=== PATIENT | female | born 1995 | race American Indian/Alaskan Native ===

== ENCOUNTER 2017-12-27 09:02 | Emergency (ER) | payer MEDICAID ==
[2017-12-27 09:09] VITALS: BP 117/80
--- NOTE | 2017-12-27 10:07 | Emergency Department Report ---
ED Female HPI - General Chief complaint: Urogenital-Female Stated complaint: UTI Time Seen by Provider: 12/27/17 09:36 Source: patient Mode of arrival: Ambulatory Limitations: No Limitations - History of Present Illness Initial comments: This is a 22-year-old female that presents with low back pain and dysuria for 2 days. Patient reports history of frequent UTIs. States she is having an frequency and urgency with pressure during urination. Admits to having a fever 2 days prior to symptoms starting but denies recent exposure to STD. Last menstrual period was 12/01/2017, A2. Denies vaginal discharge, nausea or vomiting, chest pain, and shortness of breath. -: days(s) (2 days) Radiation: non-radiating, L flank, R flank Severity: mild Severity scale (0 -10): 2 Quality: aching Consistency: intermittent Improves with: none Worsens with: urination Are you Now?: No Last Menstrual Period: 12/01/17 EDC: 09/07/18 Associated Symptoms: fever/chills, dysuria. denies: vaginal discharge, vaginal bleeding, abdominal pain, nausea/vomiting, headaches, loss of appetite, hematuria, rash, seizure, shortness of breath, syncope, weakness - Related Data Sexually active: Yes : 2 Para: 0 A: 2 Previous Rx's Medication Instructions Recorded Last Taken Type Vit-Fe Fumar-FA [ 1 each PO QDAY #30 tablet 06/06/14 Unknown Rx Vitamin] Phenazopyridine [Pyridium] 200 mg PO TID #6 tab 12/27/17 Unknown Rx Sulfamethoxazole/Trimethoprim 1 each PO BID 3 Days #6 tablet 12/27/17 Unknown Rx [Bactrim DS TAB] Allergies Allergy/AdvReac Type Severity Reaction Status Date / Time No Known Allergies Allergy Verified 12/27/17 09:06 ED Review of Systems ROS: Stated complaint: UTI Other details as noted in HPI Constitutional: denies: chills, fever Respiratory: denies: cough, shortness of breath, wheezing Cardiovascular: denies: chest pain, palpitations Gastrointestinal: denies: abdominal pain, nausea, vomiting, diarrhea Genitourinary: urgency, dysuria, frequency. denies: hematuria, discharge Musculoskeletal: denies: back pain, joint swelling, arthralgia Neurological: denies: headache, weakness, paresthesias ED Past Medical Hx - Past Medical History Previous Medical History?: No - Surgical History Past Surgical History?: No - Social History Smoking Status: Never Smoker Substance Use Type: None - Medications Home Medications: Home Medications Medication Instructions Recorded Confirmed Last Taken Type Vit-Fe Fumar-FA [ 1 each PO QDAY #30 tablet 06/06/14 Unknown Rx Vitamin] Phenazopyridine [Pyridium] 200 mg PO TID #6 tab 12/27/17 Unknown Rx Sulfamethoxazole/Trimethoprim 1 each PO BID 3 Days #6 tablet 12/27/17 Unknown Rx [Bactrim DS TAB] ED Physical Exam - General Limitations: No Limitations General appearance: alert, in no apparent distress - Respiratory Respiratory exam: Present: normal lung sounds bilaterally. Absent: respiratory distress - Cardiovascular Cardiovascular Exam: Present: regular rate, normal rhythm. Absent: systolic murmur, diastolic murmur, rubs, gallop - GI/Abdominal GI/Abdominal exam: Present: soft, normal bowel sounds. Absent: organomegaly, mass - Back Exam Back exam: Present: full ROM, CVA tenderness (L). Absent: tenderness, CVA tenderness (R), muscle spasm, paraspinal tenderness, vertebral tenderness, rash noted - Neurological Exam Neurological exam: Present: alert, oriented X3 - Psychiatric Psychiatric exam: Present: normal affect, normal mood - Skin Skin exam: Present: warm, dry, intact, normal color. Absent: rash ED Course Vital Signs 12/27/17 09:06 Temperature 98.5 F Pulse Rate 72 Respiratory 16 Rate Blood Pressure 117/80 O2 Sat by Pulse 100 Oximetry ED Medical Decision Making - Medical Decision Making This is a 22-year-old -[place] female who presents with low back pain and dysuria for 2 days. Patient was examined by me. Vitals are stable and in no acute distress. Urinalysis and urine test obtained. Urine hCG negative, will treat acute cystitis with Bactrim and Pyridium. Start Bactrim DS 1 tab by mouth twice a day 3 days, Pyridium 200 mg by mouth 3 times a day for 2 days. Discharged home in stable condition. Encouraged to increase fluid intake and follow-up with PCP if symptoms are not improved in 3 days. Critical care attestation.: If time is entered above; I have spent that time in minutes in the direct care of this critically ill patient, excluding procedure time. ED Disposition Clinical Impression: Acute cystitis Qualifiers: Hematuria presence: without hematuria Qualified Code(s): N30.00 - Acute cystitis without hematuria Disposition: TO HOME OR SELFCARE Is pt being admited?: No Does the pt Need Aspirin: No Condition: Stable Instructions: Urinary Tract Infection in Women (ED), Dysuria (ED) Additional Instructions: Increase fluid intake to 1-2 L daily. Take the full course of antibiotics as prescribed. Don't drink alcohol while taking an antibiotics and for that to 24 hours after completion. Follow-up with primary care provider in 3-5 days if symptoms have not improved. Prescriptions: Phenazopyridine [Pyridium] 200 mg PO TID #6 tab Sulfamethoxazole/Trimethoprim [Bactrim DS TAB] 1 each PO BID 3 Days #6 tablet Referrals: [facility] [Outside] - 3-5 Days [facility] [Outside] - 3-5 Days [facility] [Outside] - 3-5 Days Forms: Work/School Release Form(ED) Time of Disposition: 10:30 Print Language: BOTSWANAN
[2017-12-27 10:08] LABS: Bacteria,Urine 1+ /HPF (Negative); Bilirubin,Urine NEG (Negative); Blood,Urine NEG (Negative); Color,Urine Yellow (Yellow); Mucus,Urine 2+ /HPF
[2017-12-27 10:11] LABS: HCG Qualitative,Urine Negative (Negative)
== END 2017-12-27 11:08 | disposition home or self-care (01) ==
LOC: ED 09:02
DX: N30.00 Acute cystitis without hematuria (principal)
CPT/HCPCS: 81001; 81025; 99283

== ENCOUNTER 2018-12-06 23:04 | Emergency (ER) | payer MEDICAID ==
[2018-12-06 23:47] LABS: Basophils % (Auto) 0.5 % (0.0-1.8); Eosinophils # (Auto) 0.1 K/mm3 (0.0-0.4); Eosinophils % (Auto) 1.4 % (0.0-4.3); Hematocrit 36.4 % (30.3-42.9); Lymphocytes # (Auto) 2.9 K/mm3 (1.2-5.4); Lymphocytes % (Auto) 42.8 % (13.4-35.0); Mean Corpuscular HGB Conc 36 % (30-34); Mean Corpuscular Volume 90 fl (79-97); Monocytes # (Auto) 0.7 K/mm3 (0.0-0.8); Platelet Count 264 K/mm3 (140-440); Red Blood Count 4.06 M/mm3 (3.65-5.03); Red Cell Distribution Width 13.4 % (13.2-15.2)
[2018-12-06] MEDS ORDERED: ZOFRAN ODT PO PRN (23:52)
[2018-12-06] MEDS ORDERED: TYLENOL PO PRN (23:52)
--- NOTE | 2018-12-06 23:53 | Emergency Department Report ---
<LAURA SYLVESTER III - Last Filed: 12/07/18 05:52> ED General Adult HPI - General Chief complaint: Abdominal Pain Stated complaint: ABDOMINAL PAIN Time Seen by Provider: 12/06/18 23:46 - Related Data Previous Rx's Medication Instructions Recorded Last Taken Type Vit-Fe Fumar-FA [ 1 each PO QDAY #30 tablet 06/06/14 Unknown Rx Vitamin] Amoxicillin [Amoxicillin TAB] 875 mg PO BID 10 Days #20 tablet 12/07/18 Unknown Rx Doxylamine Succinate/Vit B6 1 each PO QHS PRN #30 tablet. 12/07/18 Unknown Rx [Deep Whyte 10-10 mg Tablet] Vit-Fe Fumar-FA [ 1 tab PO QDAY #30 tablet 12/07/18 Unknown Rx Vitamin] Allergies Allergy/AdvReac Type Severity Reaction Status Date / Time No Known Allergies Allergy Verified 12/27/17 09:06 ED Past Medical Hx - Medications Home Medications: Home Medications Medication Instructions Recorded Confirmed Last Taken Type Vit-Fe Fumar-FA [ 1 each PO QDAY #30 tablet 06/06/14 Unknown Rx Vitamin] Amoxicillin [Amoxicillin TAB] 875 mg PO BID 10 Days #20 tablet 12/07/18 Unknown Rx Doxylamine Succinate/Vit B6 1 each PO QHS PRN #30 tablet. 12/07/18 Unknown Rx [Deep Whyte 10-10 mg Tablet] Vit-Fe Fumar-FA [ 1 tab PO QDAY #30 tablet 12/07/18 Unknown Rx Vitamin] ED Course - Reevaluation(s) Reevaluation #3: Patient's UA positive for a UTI. Patient will be given antibiotics. Patient's ultrasound is done and is positive for a single IUP at 6 weeks and 3 days. Deric diego given discharge instructions. Patient voiced understanding of discharge instructions. 12/07/18 05:53 ED Medical Decision Making - Lab Data Result diagrams: 12/06/18 23:28 12/06/18 23:28 ED Disposition Clinical Impression: Qualifiers: Weeks of gestation: less than 8 weeks Qualified Code(s): Z3A.01 - Less than 8 weeks gestation of UTI (urinary tract infection) Qualifiers: Urinary tract infection type: acute cystitis Hematuria presence: with hematuria Qualified Code(s): N30.01 - Acute cystitis with hematuria Abdominal pain Qualifiers: Abdominal location: unspecified location Qualified Code(s): R10.9 - Unspecified abdominal pain Disposition: DC-01 TO HOME OR SELFCARE Is pt being admited?: No Does the pt Need Aspirin: No Condition: Stable Instructions: (ED) Additional Instructions: Take the vitamins as directed. Take nausea medication as needed/direc young. Avoid consumption of Motrin, ibuprofen, Naprosyn, Aleve. Avoid consumption of alcohol. Follow up as soon as possible with an outpatient [facility] physician to initiate care. Return to the emergency room right away with new, worsening or different symptoms, or symptoms not present on the initial emergency room evaluation. Prescriptions: Doxylamine Succinate/Vit B6 [Diclegis Dr 10-10 mg Tablet] 1 each PO QHS PRN #30 tablet.dr PRN Reason: Nausea Amoxicillin [Amoxicillin TAB] 875 mg PO BID 10 Days #20 tablet Vit-Fe Fumar-FA [ Vitamin] 1 tab PO QDAY #30 tablet Referrals: [facility] [Provider Group] - 3-5 Days [facility] [Provider Group] - 3-5 Days [facility] [Provider Group] - 3-5 Days Time of Disposition: 05:55 <GT EUCEDA - Last Filed: 12/15/18 19:25> ED General Adult HPI - General Source: patient, RN notes reviewed, old records reviewed Mode of arrival: Ambulatory Limitations: No Limitations - History of Present Illness Initial comments: This is a pleasant 23-year-old female. The patient is not known to this provider previously. The patient is 2, para 0. Last menstrual period October 10. Does not have a primary care doctor. Does not have a private [facility] RECEPTIONIST physician. Presents to the ER with a complaint of resolved supraumbilical abdominal cr amping. This is intermittent over the past couple days. It does not radiate anywhere. No headache, neck pain, chest pain, shortness of breath, fever, ocular discharge. Positive nausea, no vomiting. No urinary symptoms. No skin lesions. No rashes. No arthritis. Reportedly took a home test which was positive. No history of abdominal surgeries. -: Gradual Location: abdomen Radiation: non-radiation Quality: aching Consistency: intermittent Improves with: none Worsens with: none ED Review of Systems ROS: Stated complaint: ABDOMINAL PAIN Other details as noted in HPI Constitutional: denies: fever Eyes: denies: eye discharge ENT: denies: epistaxis Respiratory: denies: cough Cardiovascular: denies: palpitations Gastrointestinal: abdominal pain, nausea. denies: vomiting Genitourinary: denies: dysuria Musculoskeletal: denies: arthralgia Skin: denies: lesions Neurological: denies: weakness Psychiatric: denies: anxiety ED Past Medical Hx - Past Medical History Previous Medical History?: No - Surgical History Past Surgical History?: No - Social History Smoking Status: Never Smoker Substance Use Type: None ED Physical Exam - General Limitations: No Limitations General appearance: alert, in no apparent distress - Head Head exam: Present: atraumatic, normocephalic - Eye Eye exam: Present: normal appearance, EOMI. Absent: nystagmus - ENT ENT exam: Present: normal exam, normal orophraynx, mucous membranes moist, normal external ear exam - Neck Neck exam: Present: normal inspection, full ROM. Absent: tenderness, meningismus - Respiratory Respiratory exam: Present: normal lung sounds bilaterally. Absent: respiratory distress - Cardiovascular Cardiovascular Exam: Present: regular rate, normal rhythm, normal heart sounds. Absent: bradycardia, tachycardia, irregular rhythm, systolic murmur, diastolic murmur, rubs, gallop - GI/Abdominal GI/Abdominal exam: Present: soft. Absent: distended, tenderness, guarding, rebound, rigid, pulsatile mass - Extremities Exam Extremities exam: Present: normal inspection, full ROM, other (2+ pulses noted in the bilateral upper, lower extremities. Compartments soft. No long bony tenderness. The pelvis is stable.). Absent: pedal edema, joint swelling, calf tenderness - Back Exam Back exam: Present: normal inspection, full ROM. Absent: tenderness, CVA tenderness (R), CVA tenderness (L), paraspinal tenderness, vertebral tenderness - Neurological Exam Neurological exam: Present: alert, normal gait, other (Extraocular movements intact. Tongue midline. No facial droop. Facial sensation intact to light touch in the V1, V2, V3 distribution bilaterally. 5 and 5 strength in 4 extre mities.. Sensation is intact to light touch in 4 extremities.). Absent: motor sensory deficit - Psychiatric Psychiatric exam: Present: normal affect, normal mood - Skin Skin exam: Present: warm, dry, intact, normal color. Absent: rash ED Course Vital Signs 12/07/18 12/07/18 12/07/18 00:10 00:13 01:17 Temperature 98.5 F Pulse Rate 81 Respiratory 16 16 16 Rate Blood Pressure 122/70 [Right] O2 Sat by Pulse 98 Oximetry 12/07/18 12/07/18 02:00 06:22 Temperature 98.1 F 98.2 F Pulse Rate 81 81 Respiratory 16 16 Rate Blood Pressure 112/72 112/63 [Right] O2 Sat by Pulse 100 100 Oximetry - Reevaluation(s) Reevaluation #1: 12/07/18 00:00 Differential diagnosis, including not limited to: Confirmation of positive test, urinary tract infection, subchorionic hemorrhage, , ectopic , constipation Assessment and plan: 23-year-old female who endorses intermittent abdominal pain. She is not having pain in this moment. She has no abdominal tenderness. She appears to be afebrile with reassuring vital signs and appears to be quite comfortable. Her physical examination is quite unremarkable. We will check screening laboratory studies, type and screen, urinalysis, obstetrics ultrasound. Suspect primary motivation for presenting to the emergency room is confirmation of outpatient test. Reevaluation #2: 12/07/18 01:39 Patient found to be Rh+. Laboratory studies confirm . Ultrasound pending. Initial urinalysis contaminated with epithelial cells, and therefore not interpretable. Repeat clean catch urinalysis has been requested. Care will be transferred to the overnight physician, Dr. Annamaria Sylvester, to follow-up on clean catch urinalysis, and ultrasound. Anticipate discharge if uncomplicated intrauterine is confirmed. ED Medical Decision Making - Lab Data Result diagrams: 12/06/18 23:28 12/06/18 23:28 Lab Results 12/06/18 Range/Units 23:28 WBC 6.7 (4.5-11.0) K/mm3 RBC 4.06 (3.65-5.03) M/mm3 Hgb 13.0 (10.1-14.3) gm/dl Hct 36.4 (30.3-42.9) % MCV 90 (79-97) fl MCH 32 (28-32) pg MCHC 36 H (30-34) % RDW 13.4 (13.2-15.2) % Plt Count 264 (140-440) K/mm3 Lymph % (Auto) 42.8 H (13.4-35.0) % Nobles % (Auto) 10.0 H (0.0-7.3) % Eos % (Auto) 1.4 (0.0-4.3) % Baso % (Auto) 0.5 (0.0-1.8) % Lymph # 2.9 (1.2-5.4) K/mm3 Nobles # 0.7 (0.0-0.8) K/mm3 Eos # 0.1 (0.0-0.4) K/mm3 Baso # 0.0 (0.0-0.1) K/mm3 Seg Neutrophils % 45.3 (40.0-70.0) % Seg Neutrophils # 3.0 (1.8-7.7) K/mm3 Vital Signs 12/07/18 00:13 Temperature 98.5 F Pulse Rate 81 Respiratory 16 Rate Blood Pressure 122/70 [Right] O2 Sat by Pulse 98 Oximetry Lab Results 12/06/18 12/06/18 Range/Units 23:28 23:28 WBC 6.7 (4.5-11.0) K/mm3 RBC 4.06 (3.65-5.03) M/mm3 Hgb 13.0 (10.1-14.3) gm/dl Hct 36.4 (30.3-42.9) % MCV 90 (79-97) fl MCH 32 (28-32) pg MCHC 36 H (30-34) % RDW 13.4 (13.2-15.2) % Plt Count 264 (140-440) K/mm3 Lymph % (Auto) 42.8 H (13.4-35.0) % Nobles % (Auto) 10.0 H (0.0-7.3) % Eos % (Auto) 1.4 (0.0-4.3) % Baso % (Auto) 0.5 (0.0-1.8) % Lymph # 2.9 (1.2-5.4) K/mm3 Nobles # 0.7 (0.0-0.8) K/mm3 Eos # 0.1 (0.0-0.4) K/mm3 Baso # 0.0 (0.0-0.1) K/mm3 Seg Neutrophils % 45.3 (40.0-70.0) % Seg Neutrophils # 3.0 (1.8-7.7) K/mm3 Sodium 137 (137-145) mmol/L Potassium 3.7 (3.6-5.0) mmol/L Chloride 102.3 (98-107) mmol/L Carbon Dioxide 22 (22-30) mmol/L Anion Gap 16 mmol/L BUN 9 (7-17) mg/dL Creatinine 0.7 (0.7-1.2) mg/dL Estimated GFR > 60 ml/min BUN/Creatinine Ratio 13 % Glucose 82 (65-100) mg/dL Calcium 9.0 (8.4-10.2) mg/dL Total Bilirubin 0.30 (0.1-1.2) mg/dL AST 17 (5-40) units/L ALT 10 (7-56) units/L Alkaline Phosphatase 49 (35-129) units/L Total Protein 7.6 (6.3-8.2) g/dL Albumin 4.1 (3.9-5) g/dL Albumin/Globulin Ratio 1.2 % - Radiology Data Radiology results: pending, report reviewed, image reviewed Print Report Referring Physician: GT EUCEDA Patient Name: KATHRINE SHAH Date of : 1995 Sex: Female Report Date: 2018-12-06 Report Status: Finalized Findings [facility] [address] [place] [address] Ultrasound Report Signed Patient: KATHRINE SHAH MR#: [id number] : 1995 Acct:[id number] Age/Sex: 23 / F ADM Date: 12/06/18 Loc: ED Attending Dr: Ordering Physician: GT EUCEDA MD Date of Service: 12/06/18 Procedure(s): US OB transvaginal Accession Number(s): [id number] cc: GT EUCEDA MD PROCEDURE: US OB <= 14 WEEKS FETUS TECHNIQUE: Transabdominal and transvaginal pelvic ultrasound HISTORY: abd pain COMPARISONS: No priors FINDINGS: The uterus is normal in contour and measures 8.5 cm longitudinally. Nabothian cyst incidentally noted adjacent to the cervical canal. There is an intrauterine gestational sac with pole identified. [place]-rump length corresponds to a gestational age of 6 weeks and 3 days. The heart rate is 123 beats per minutes. The right ovary is enlarged. There is a right ovarian cyst which measures approximately 3.6 cm in diameter. There is a smaller complex ovarian cysts with internal echoes which may be hemorrhagic measuring approximately 1.9 cm in diameter. The left ovary is normal in contour. Isoechoic rounded structure in the left ovary measuring 1.3 cm likely representing corpus luteum. Ovarian vascularity demonstrated with color flow images. IMPRESSION: S henry viable intrauterine at approximately 6 weeks and 3 days of gestation. 3.6 cm right ovarian cyst and complex cystic lesion in the right ovary measuring 1.9 cm in diameter which may be hemorrhagic. 1.3 cm isoechoic structure in the left ovary likely corpus luteum measuring 1.3 cm . This document is electronically signed by Mickey Morillo MD., December 07 2018 03:18:23 AM ET Transcribed By: EVERTON Dictated By: MCIKEY MORILLO MD Electronically Authenticated By: MICKEY MORILLO MD Signed Date/Time: 12/07/18 0320 Critical care attestation.: If time is entered above; I have spent that time in minutes in the direct care of this critically ill patient, excluding procedure time. ED Disposition Is pt being admited?: No Does the pt Need Aspirin: No
[2018-12-07 00:14] LABS: Alanine Aminotransferase 10 units/L (7-56); Albumin 4.1 g/dL (3.9-5); BUN/Creatinine Ratio 13; Blood Urea Nitrogen 9 mg/dL (7-17); Hemolysis Index 10
[2018-12-07 01:30] LABS: Bacteria,Urine 1+ /HPF (Negative); Bilirubin,Urine NEG (Negative); Blood,Urine NEG (Negative); Color,Urine Yellow (Yellow); Hyaline Casts,Urine 3 /LPF; Mucus,Urine FEW /HPF; Protein,Urine <15 mg/dL mg/dL (Negative); Urobilinogen,Urine < 2.0 mg/dL (<2.0)
--- NOTE | 2018-12-07 03:20 | Ultrasound Report ---
PROCEDURE: US OB <= 14 WEEKS FETUS TECHNIQUE: Transabdominal and transvaginal pelvic ultrasound HISTORY: abd pain COMPARISONS: No priors FINDINGS: The uterus is normal in contour and measures 8.5 cm longitudinally. Nabothian cyst incidentally noted adjacent to the cervical canal. There is an intrauterine gestational sac with pole identified. [place]-rump length corresponds to a gestational age of 6 weeks and 3 days. The heart rate is 123 beats per minutes. The right ovary is enlarged. There is a right ovarian cyst which measures approximately 3.6 cm in josh meter. There is a smaller complex ovarian cysts with internal echoes which may be hemorrhagic measuri ng approximately 1.9 cm in diameter. The left ovary is normal in contour. Isoechoic rounded structure in the left ovary measuring 1.3 cm l ikely representing corpus luteum. Ovarian vascularity demonstrated with color flow images. IMPRESSION: Single viable intrauterine at approximately 6 weeks and 3 days of gestation. 3.6 cm right ovarian cyst and complex cystic lesion in the right ovary measuring 1.9 cm in diameter w hich may be hemorrhagic. 1.3 cm isoechoic structure in the left ovary likely corpus luteum measuring 1.3 cm . This document is electronically signed by Mickey Morillo MD., December 07 2018 03:18:23 AM ET
[2018-12-07 05:00] LABS: Amorphous Crystals,Urine Few; Bilirubin,Urine NEG (Negative); Blood,Urine MOD (Negative); Color,Urine Straw (Yellow); Mucus,Urine FEW /HPF; Protein,Urine <15 mg/dL mg/dL (Negative); Urobilinogen,Urine < 2.0 mg/dL (<2.0)
[2018-12-07 06:24] VITALS: BP 112/63
== END 2018-12-07 06:25 | disposition home or self-care (01) ==
LOC: ED 23:04
DX: O23.41 Unspecified infection of urinary tract in pregnancy, first trimester (principal); Z3A.01 Less than 8 weeks gestation of pregnancy; Z79.899 Other long term (current) drug therapy
CPT/HCPCS: 36415; 76801; 76817; 80053; 81001; 84702; 85025; 85461; 86850; 86900; 86901; 87086; 99284; Q0162

== ENCOUNTER 2019-02-20 11:40 | Emergency (ER) | payer MEDICAID ==
--- NOTE | 2019-02-20 12:01 | Event Note ---
ED Screening Note ED Screening Note: 17 W PREG WITH NEW VAG SPOTTING NO PAIN NO TISSUE PASSING AMBULATORY [id number] HAS SEEN OBGYN AND ALL WAS FINE WITH PMH NONE PSH NONE RX NO CIG/ETOH/DRUGA This initial assessment/diagnostic orders/clinical plan/treatment(s) is/are subject to change based on patients health status, clinical progression and re- assessment by fellow clinical providers in the ED. Further treatment and workup at subsequent clinical providers discretion. Patient/guardian urged not to elope from the ED as their condition may be serious if not clinically assessed and managed. Initial orders include: UA LABS US
[2019-02-20 12:06] VITALS: BP 122/82
[2019-02-20 12:36] LABS: Basophils % (Auto) 0.3 % (0.0-1.8); Eosinophils % (Auto) 0.7 % (0.0-4.3); Hematocrit 35.2 % (30.3-42.9); Hemoglobin 12.2 gm/dl (10.1-14.3); Lymphocytes # (Auto) 1.8 K/mm3 (1.2-5.4); Lymphocytes % (Auto) 27.7 % (13.4-35.0); Mean Corpuscular HGB Conc 35 % (30-34); Mean Corpuscular Volume 91 fl (79-97); Monocytes # (Auto) 0.6 K/mm3 (0.0-0.8); Monocytes % (Auto) 9.4 % (0.0-7.3); Platelet Count 253 K/mm3 (140-440); Red Blood Count 3.86 M/mm3 (3.65-5.03); Red Cell Distribution Width 13.6 % (13.2-15.2)
[2019-02-20 12:52] LABS: BUN/Creatinine Ratio 10; Blood Urea Nitrogen 5 mg/dL (7-17); Calcium 8.9 mg/dL (8.4-10.2); Hemolysis Index 1
--- NOTE | 2019-02-20 13:42 | Ultrasound Report ---
OB Ultrasound HISTORY: VAG BLEED IN PREG. TECHNIQUE: Grayscale and color Doppler imaging performed. COMPARISON: OB ultrasound from 12/07/2018 FINDINGS: Transabdominal imaging was performed. There is a single intrauterine gestation which is breech in presentation. Placenta is positioned post eriorly. There are fluid pockets deeper than 2 cm. Overall EGA by evaluating biparietal diameter, hea d circumference, abdominal circumference, and femoral length is 17 weeks and 3 days with an estimated delivery date of 07/28/2019. Limited anatomic survey did not show the kidneys and four-chamber heart a re well but the remaining anatomy is unremarkable. The heart rate is 142 bpm and the cervical length is 3 cm. IMPRESSION: 1. Single viable intrauterine gestation as above. 2. Poor visualization of the kidneys and four-chamber heart on this exam. Attention on follow-up wan mmended. Signer Name: Amari Markham MD Signed: 02/20/2019 1:37 PM Workstation Name: [id number]
--- NOTE | 2019-02-20 14:44 | Emergency Department Report ---
HPI - General Chief Complaint: Vaginal Bleeding Time Seen by Provider: 02/20/19 12:01 - [facility] HPI: Room 40 The patient is a 23-year-old female presenting with a chief complaint of vaginal spotting. The patient states she is approximately 17 weeks gestational age and today while at work she developed some vaginal spotting. Patient denied abdominal pain. Patient denies recent trauma or sexual intercourse. Patient denies fever or vaginal discharge. Patient currently denies complaints Location: [See above] Duration: [See above] Quality: [See above] Severity: [See above] Timing: [See above] Context: [See above] Modifying factors: [See above] Associated signs and symptoms: [see above] ED Past Medical Hx - Past Medical History Previous Medical History?: No - Surgical History Past Surgical History?: No - Family History Family history: no significant - Social History Smoking Status: Never Smoker Substance Use Type: None - Medications Home Medications: Home Medications Medication Instructions Recorded Confirmed Last Taken Type Vit-Fe Fumar-FA [ 1 each PO QDAY #30 tablet 06/06/14 Unknown Rx Vitamin] Amoxicillin [Amoxicillin TAB] 875 mg PO BID 10 Days #20 tablet 12/07/18 Unknown Rx Doxylamine Succinate/Vit B6 1 each PO QHS PRN #30 tablet. 12/07/18 Unknown Rx [Deep Whyte 10-10 mg Tablet] Vit-Fe Fumar-FA [ 1 tab PO QDAY #30 tablet 12/07/18 Unknown Rx Vitamin] ED Review of Systems ROS: Stated complaint: 17 WKS /BLEEDING/PAIN Other details as noted in HPI Constitutional: denies: fever Eyes: denies: eye pain ENT: denies: throat pain Respiratory: no symptoms reported Cardiovascular: denies: chest pain Endocrine: no symptoms reported Gastrointestinal: denies: abdominal pain Genitourinary: abnormal menses Musculoskeletal: denies: back pain Neurological: denies: headache Physical Exam - Physical Exam Vital Signs: Vital Signs 02/20/19 12:04 Temperature 97.7 F Pulse Rate 92 H Respiratory 18 Rate Blood Pressure 122/82 O2 Sat by Pulse 100 Oximetry Physical Exam: GENERAL: The patient is well-developed well-nourished female lying on stretcher not appearing to be in acute distress. [] HEENT: Normocephalic. Atraumatic. Extraocular motions are intact. Patient has moist mucous membranes. NECK: Supple. Trachea midline CHEST/LUNGS: Clear to auscultation. There is no respiratory distress noted. HEART/CARDIOVASCULAR: Regular. There is no tachycardia. There is no gallop rub or murmur. ABDOMEN: Abdomen is soft, nontender. Patient has normal bowel sounds. The patient is gravid SKIN: There is no rash. There is no edema. There is no diaphoresis. NEURO: The patient is awake, alert, and oriented. The patient is cooperative. The patient has normal speech MUSCULOSKELETAL: There is no evidence of acute injury. ED Course Vital Signs 02/20/19 12:04 Temperature 97.7 F Pulse Rate 92 H Respiratory 18 Rate Blood Pressure 122/82 O2 Sat by Pulse 100 Oximetry ED Medical Decision Making - Lab Data Result diagrams: 02/20/19 12:16 02/20/19 12:16 Laboratory Tests 02/20/19 02/20/19 02/20/19 12:16 12:16 12:16 WBC 6.3 RBC 3.86 Hgb 12.2 Hct 35.2 MCV 91 MCH 32 MCHC 35 H RDW 13.6 Plt Count 253 Lymph % (Auto) 27.7 [place] % (Auto) 9.4 H Eos % (Auto) 0.7 Baso % (Auto) 0.3 Lymph # 1.8 [place] # 0.6 Eos # 0.0 Baso # 0.0 Seg Neutrophils % 61.9 Seg Neutrophils # 3.9 Sodium 137 Potassium 4.1 Chloride 100.9 Carbon Dioxide 24 Anion Gap 16 BUN 5 L Creatinine 0.5 L Estimated GFR > 60 BUN/Creatinine Ratio 10 Glucose 95 Calcium 8.9 HCG, Quant 53241 H Blood Type Ord Rhogam Gestat Weeks 02/20/19 12:16 WBC RBC Hgb Hct MCV MCH MCHC RDW Plt Count Lymph % (Auto) [place] % (Auto) Eos % (Auto) Baso % (Auto) Lymph # [place] # Eos # Baso # Seg Neutrophils % Seg Neutrophils # Sodium Potassium Chloride Carbon Dioxide Anion Gap BUN Creatinine Estimated GFR BUN/Creatinine Ratio Glucose Calcium HCG, Quant Blood Type B POSITIVE Ord Rhogam Gestat Weeks Rh pos - Radiology Data Radiology results: report reviewed (pelvic ultrasound), image reviewed (pelvic ultrasound) [facility] [address] [place] [address] Ultrasound Report Signed Patient: KATHRINE SHAH MR#: [id number] : 1995 Acct:[id number] Age/Sex: 23 / F ADM Date: 02/20/19 Loc: ED Attending Dr: Ordering Physician: JUVENCIO MOONEY Date of Service: 02/20/19 Procedure(s): US OB >= 14 weeks Fetus Accession Number(s): [id number] cc: JUVENCIO MOONEY OB Ultrasound HISTORY: VAG BLEED IN PREG. TECHNIQUE: Grayscale and color Doppler imaging performed. COMPARISON: OB ultrasound from 12/07/2018 FINDINGS: Transabdominal imaging was performed. There is a single intrauterine gestation which is breech in presentation. Placenta is positioned posteriorly. There are fluid pockets deeper than 2 cm. Overall EGA by evaluating biparietal diameter, head circumference, abdominal circumference, and femoral length is 17 weeks and 3 days with an estimated delivery date of 07/28/2019. Limited anatomic survey did not show the kidneys and four-chamber heart are well but the remaining anatomy is unremarkable. The heart rate is 142 bpm and the cervical length is 3 cm. IMPRESSION: 1. Single viable intrauterine gestation as above. 2. Poor visualization of the kidneys and four-chamber heart on this exam. Attention on follow-up recommended. Signer Name: Amari Markham MD Signed: 02/20/2019 1:37 PM Workstation Name: [id number] Transcribed By: LOTTIE Dictated By: Amari Markham MD Electronically Authenticated By: Amari Markham MD Signed Date/Time: 02/20/19 1337 DD/ 1334 TD/TT: - Differential Diagnosis threatened , inevitable , missed Critical care attestation.: If time is entered above; I have spent that time in minutes in the direct care of this critically ill patient, excluding procedure time. ED Disposition Clinical Impression: Threatened Disposition: DC-01 TO HOME OR SELFCARE Is pt being admited?: No Does the pt Need Aspirin: No Condition: Stable Instructions: Threatened Miscarriage (ED) Additional Instructions: Return to the emergency department should you develop worsening symptoms, inability to tolerate food or liquids, high fever or any other concerns Referrals: Dr. Guillory, [facility] [employer] [Other] - [facility] Time of Disposition: 14:44
== END 2019-02-20 15:09 | disposition home or self-care (01) ==
LOC: ED 11:40
DX: O20.0 Threatened abortion (principal); Z79.899 Other long term (current) drug therapy; Z3A.17 17 weeks gestation of pregnancy
CPT/HCPCS: 36415; 76805; 80048; 84702; 85025; 86900; 86901